=== PATIENT | female | born 1975 | race Caucasian/White ===

== ENCOUNTER 2017-02-01 05:43 | Day surgery (SDC) | payer OTHER ==
[~2017-02-01] VITALS: Ht 162.6 cm; Wt 108.0 kg
[2017-02-01] VITALS (27 sets, daily range): BP systolic 106–140; BP diastolic 50–77; PULSE 68–83; RESP 12–104; Ht 162.6 cm; Wt 108.0 kg
[~2017-02-01 05:43] MED LIST: IBUP400T22 PO
[2017-02-01] MEDS ORDERED: SOD CHLORIDE 0.9% 1,000 ML IV ONE (06:00)
[2017-02-01] MEDS ORDERED: CEFAZOLIN 1 GM/50 ML (PMX) 50 ML IVPB ONE (06:00)
[2017-02-01] MEDS ORDERED: ALBU90AE INHALATION (07:14)
[2017-02-01] MEDS ORDERED: METF500T4 PO (07:14)
[2017-02-01] MEDS ORDERED: HYDR-3011 PO (07:14)
[2017-02-01] MEDS ORDERED: BUPIVACAINE 0.25% (MPF) 30 ML INJ ONE (07:22)
[2017-02-01] MEDS ORDERED: MIDAZOLAM 1 MG/ML 2 ML INJ ONE (08:22)
[2017-02-01] MEDS ORDERED: FENTAnyl 50 MCG/ML VIAL ONE (08:22)
[2017-02-01] MEDS ORDERED: PROPOFOL 20 ML ONE (08:55)
[2017-02-01] MEDS ORDERED: LIDOCAINE 2% (SDV) 5 ML INJ ONE (08:55)
[2017-02-01] MEDS ORDERED: CEFAZOLIN 1 GM INJ ONE (08:56)
[2017-02-01] MEDS ORDERED: ONDANSETRON 4 MG INJ ONE (08:56)
--- NOTE | 2017-02-01 08:58 | OPR ---
Date/Time of Note Date/Time of Note DATE: 02/01/17 TIME: 08:55 Operative Report Procedure Date: Feb 01, 2017 Preoperative Diagnosis right forehead mass Postoperative Diagnosis same Operation/Procedure Performed 1. excision of right forehead mass 3 cm mass 3 cm incision 2. localized adjacent tissue transfer with the use of skin flaps 6 sq cm defect 3. therapeutic injection of subcutaneous local anesthesia Surgeon see signature line Communications Attendant none Anesthesia Type: general Estimated Blood Loss: 0 - 10 ml's Transfusion none Specimen right forehead mass Grafts/Implants none Complications none Pt Condition Post Procedure: stable Indications This is a 41-year-old female with a right forehead mass. She requests surgical excision. Risks alternatives benefits and percent were discussed the patient. Patient expresses understanding consents to the operation. Procedure Description Patient taken to the OR and prepped and draped in usual sterile fashion. Surgical timeout was performed. IV antibiotics were given. Transverse incision is made with a 15 blade over the right forehead mass. Dissection cautery was carried onto the mass and circumferentially excised. Hemostasis established. Due to the tissue defect localized adjacent tissue transfer with use of skin flaps was performed. Multilayer closure with interrupted 3-0 Vicryl and running 4-0 Monocryl. Therapeutic subcutaneous local anesthesia was injected throughout the incision. Dry dressings were applied. Swati BUCKLEY Feb 01, 2017 08:58
[2017-02-01] MEDS ORDERED: HYDROCODONE/APAP (5/325) TAB PO ONE (09:00)
[2017-02-01] MEDS ORDERED: ALBUTEROL 0.5% (NEB) 2.5 MG/0.5 ML AMP HHN STA (10:07)
[2017-02-01] MEDS ORDERED: ALBUTEROL 0.5% (NEB) 2.5 MG/0.5 ML AMP ONE (10:07)
== END 2017-02-01 11:51 | disposition home or self-care (01) ==
LOC: SDS 05:43
PROVIDERS: ATTEND Surgery
DX: D17.0 Benign lipomatous neoplasm of skin and subcutaneous tissue of head, face and neck (principal); I10 Essential (primary) hypertension; E78.5 Hyperlipidemia, unspecified
CPT/HCPCS: 14040; 82962; 88307; J0690; J2250; J2405; J3010; Z7512; Z7610